=== PATIENT | female | born 2005 | race Caucasian/White ===

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

== ENCOUNTER 2024-02-06 08:01 | Outpatient (CLI) | payer BC, SELFPAY ==
[2024-02-06 10:05] LABS: Thyroid Stimulating Hormone 2.23 uIU/mL (0.465-4.68)
[2024-02-07 05:09] LABS: FSH 7.9 mIU/mL (.); LH 24.6 mIU/mL (.)
[2024-02-09 18:10] LABS: Free Testosterone (Direct) 2.7 pg/mL (Not Estab.); Testosterone, Total, LC/MS 53.5 ng/dL (10.0-55.0)
== END 2024-02-06 23:59 ==
LOC: LAB 08:02
PROVIDERS: PCP Internal Medicine; Visit Provider Obstetrics & Gynecology
DX: E28.2 Polycystic ovarian syndrome (principal)
CPT/HCPCS: 36415; 82626; 82670; 83001; 83002; 83498; 84443

== ENCOUNTER 2025-05-11 15:10 | Emergency (ER) | payer MEDICAID, SELFPAY ==
[2025-05-11 15:51] VITALS: BP 107/72; PULSE 83; RESP 17; TEMP 36.9; O2SAT 99; BMI 22.8
--- OUTSIDE RECORDS SUMMARY | 2025-05-11 15:57 | XMS_ITS | Data Portability ---
Author Organization ID - [facility] - [place] & [place] [facility] Address [address] [place] [address] Care Team Providers Care Territory Sales Representative Name Role Phone VAN VALADEZ Primary Care Provider VAN VALADEZ Referring Provider Assessment Encounter Date Assessment Date Assessment LastModified by Organization Details LastModified Time 09/05/2023 09/05/2023 Ms. Anand is an 17 yo lady with PMH of Hpylori s/p partial treatment(didnt complete d/t side effects), suspected IBS, anxiety who presents for evaluation of dysphagia, abdominal pain and significant constipation. 1. Dysphagia to solids 2. Unintentional weight loss , inability to eat 3. Mid- abdominal pain 4. change in bowel habits - Dysphagia to solids, with frequent regurgitation of food - no PH or FH of allergic conditions, no one with known EoE - Has never had an EGD for further evaluation Ddx: EoE vs stricture vs ring vs motility issue vs globus vs other - also has severe constipation , suddenly started 2 yrs ago, very difficult to have a bowel movement. Usually BSS 1. - has tried miralax, docusate and enemas but dont help much - never tried presciption medications for constipation - no known FH of GI cancers. Ddx: given she is having abdominal pain and change in bowel habits with weight loss, warrants endoscopic evaluation to rule out large polyps/ early tumors etc. Other differentials include slow transit constipation, IBS, outflow obstruction etc. PLAN: - Linzess 145 mcg daily start today - Dysphagia precautions - EGD for further evaluation of dysphagia and abdominal pain, ? H pylori which was partially treated - Colonoscopy for further evaluation of abdominal pain, weight loss, change in bowel habits. F/up in 6 weeks after above testing. Not available 09/05/2023 10:30:14 10/26/2023 10/26/2023 Ms. Anand is an 17 yo lady with PMH of Hpylori s/p partial treatment(didnt complete d/t side effects), suspected IBS, anxiety who presents for follow up after recent EGD with diagnosis of Eoe (50 Eos / hpf) and H pylori gastritis. 1. EOE- new diagnosis - dysphagia with choking episodes 3-4 times / month - EGD 09/2023 with no stricturing dosease but she did have 50 eos/ hpf and linear furrowing visible - currently not on any medication for this, hasnt started PPI therapy yet. PLAN: - lactose elimination (Starting with 1 food elimination diet per patient preference, she already avoids eggs) - start pantoprazole 40 mg BID, counselled on how to take it - discussed natural history, disease pathophys, management strategies for Eoe in detail with patient today - if no improvement with PPI and lactose elimination, will start fluticasone next visit 2. H.pylori Gastritis: - pylera was not covered by insurance so she got triple therapy with rifabutin instead. We discussed side effects how to take it etc. PLAN: - triple therapy for H pylori x 1 days - will check H pylori stool Ag after completion of treatment for eradication confirmation. 3. Constipation: - also has severe constipation , suddenly started 2 yrs ago, very difficult to have a bowel movement. Usually BSS 1. - doesnt have a BM for 4-5 days at a time. - has tried miralax, docusate and enemas but dont help much - never tried prescription medications for constipation - no known FH of GI cancers. - colonoscopy 09/2023 was normal,with normal TI. PLAN: - Start Linzess 145 mcg daily f/up in 6-8 weeks Not available 10/29/2023 14:00:44 Plan of Treatment Reminders Order Date Submit Date Provider Last Modified By Organization Details Last Modified Time Details Appointments None recorded. Lab CMP, serum or plasma 2022 023 epetting [facility], [address], [address], [place], [address], 4 15:21:39 CBC w/ auto diff 2022 023 epetting [facility], [address], [address], [place], [address], 4 15:21:39 Referral None recorded. Procedures upper endoscopy procedure (EGD) (PROC) 2022 023 epetting Not available 4 18:33:19 colonoscopy procedure (PROC) 2022 023 epetting Not available 4 18:33:19 Surgeries None recorded. Imaging CT, abdomen + pelvis, w/o contrast 2022 023 [email or web address] 7 [facility] (Centralized Scheduling), [address], [place], [address], 4 10:17:55 Medication Orders Golytely 236 gram-22.74 gram-6.74 gram-5.86 gram oral solution 2022 023 [facility], [address], [address], 3 09:40:24 Linzess 145 mcg capsule 2022 023 [email or web address] [facility], [address] [place] [address], [address], 3 10:21:19 omeprazole 20 mg capsule,del ayed release 2021 022 [facility], [address] [place] [address], [address], 2 14:21:14 Patient TargetsNo targets recorded. Patient InstructionsNo instructions recorded. Reason for Referral None Reported. Results Created Date Observation Date Name Description Value Unit Range Abnormal Flag Note LastModifiedBy Organization Detail LastModifiedTime Result Notes None recorded. Problems Name Problem SNOMED Code Status Onset Date Resolution Date Notes Provider Name and Address Organization Details Recorded Time Helicobacter pylori gastrointesti nal tract infection 044397197 Active 2022 Artur Taylor PA-C [address] , [place], [address] , [facility] & [place] 3 10:18:48 Eosinophilic esophagitis 170906164 Active 2022 Artur Taylor PA-C [address], [place], [address] , [facility] & [place] 3 10:25:17 Problem Notes None recorded. Medical Equipment None Reported. Allergies No known drug allergies Medications Name Sig Start Date Stop Date Status Note LastModified by Organization Details LastModified Time amoxicillin 500 mg capsule TAKE 2 CAPSULES BY MOUTH TWICE DAILY 09/05 completed Not Available Not Available Not Available paroxetine 10 mg tablet TAKE 1 TABLET BY MOUTH ONCE DAILY active Not Available Not Available No t Available ibuprofen 800 mg tablet TAKE 1 TABLET BY MOUTH EVERY 6 HOURS NEEDED FOR PAIN active Not Available Not Available No t Available clarithromy inessa 500 mg tablet TAKE 1 TABLET BY MOUTH TWICE DAILY active Not Available Not Available No t Available oxycodone-a cetaminophe n 5 mg-325 mg tablet TAKE 1 TABLET BY MOUTH EVERY 6 HOURS NEEDED FOR PAIN 09/05 completed Not Available Not Available Not Available lorazepam 0.5 mg tablet TAKE 1 TABLET BY MOUTH THREE TIMES DAILY NEEDED FOR ANXIETY active Not Available Not Available No t Available pantoprazol e 40 mg tablet,bella yed release TAKE 1 TABLET BY MOUTH TWICE DAILY 30 MINUTES BEFORE MORNING AND EVENING MEAL active Not Available Not Available No t Available oseltamivir 75 mg capsule TAKE 1 CAPSULE BY MOUTH TWICE DAILY active Not Available Not Available No t Available lansoprazol e 30 mg capsule,del ayed release TAKE 1 CAPSULE BY MOUTH TWICE DAILY active Not Available Not Available No t Available buspirone 7.5 mg tablet TAKE 1 TABLET BY MOUTH TWICE DAILY active Not Available Not Available No t Available omeprazole 20 mg capsule,del ayed release Take 1 capsule every day by oral route as directed for 30 days. active Not Available Not Available No t Available diclofenac sodium 75 mg tablet,bella yed release TAKE 1 TABLET BY MOUTH TWICE DAILY, DO NOT CRUSH, CHEW, OR SPLIT active Not Available Not Available No t Available bromphenira mine-pseudo ephedrine-D M 2 mg-30 mg-10 mg/5 mL oral syrup active Not Available Not Available Not Available sertraline 50 mg tablet TAKE 1 TABLET BY MOUTH ONCE DAILY active Not Available Not Available No t Available naproxen 500 mg tablet TAKE 1 TABLET BY MOUTH TWICE DAILY active Not Available Not Available No t Available GaviLyte-G 236 gram-22.74 gram-6.74 gram-5.86 gram oral solution TAKE DIRECTED active Not Available Not Available No t Available Linzess 145 mcg capsule Take by oral route for 90 days. active Not Available Not Available No t Available Talicia 10 mg-250 mg-12.5 mg capsule,imm ediate - delay release Take by oral route for 14 days. 2022 active Not Available Not Available Not Avai lable Zafemy 150 mcg-35 mcg/24 hr transdermal patch APPLY 1 PATCH TOPICALLY ONCE A WEEK FOR 3 WEEKS OF A 4 WEEK CYCLE active Not Available Not Available No t Available Vitals Date Recorded Body weight Body mass index (BMI) Body mass index (BMI) [Percentile] Per age and sex Body height Oxygen saturation Oxygen saturation in Arterial blood by Pulse oximetry Heart rate Heart rate Body temperature Systolic blood pressure Diastolic blood pressure Provider Name and Address Organization Details Last Updated DateTime 3 80978.9 9 g 24.2 kg/m2 76 % 157.48 cm 97 % 97 % 63 /min 60 /min 97.3 [degF] 126 mm[Hg] 91 mm[Hg] Felicita Mcintosh [facility] & [place] 3 08:48:53 Date Recorded Heart rate Systolic blood pressure Diastolic blood pressure Provider Name and Address Organization Details Last Updated DateTime 10/25/2022 79 /min 127 mm[Hg] 77 mm[Hg] Erika Nunez [facility] & [place] 10/25/2022 14:00:47 Date Recorded Body height Body mass index (BMI) Body mass index (BMI) [Percentile] Per age and sex Body weight Body temperature Oxygen saturation Oxygen saturation in Arterial blood by Pulse oximetry Heart rate Heart rate Systolic blood pressure Diastolic blood pressure Provider Name and Address Organization Details Last Updated DateTime 3 157.48 cm 25.1 kg/m2 81 % 54496.9 5 g 97.9 [degF] 97 % 97 % 88 /min 79 /min 116 mm[Hg] 84 mm[Hg] Jose D Wall [facility] & [place] 09:39:20 Social History Question Answer Notes LastModified by Organizat ion Details LastModified Time Tobacco Smoking Status Never Smoker Felicita Mcintosh null, [facility] & [place] 09/05/2023 08:48:29 What Is Your Level Of Caffeine Consumption? Occasional Information not available 10/26/2023 Sex: Unknown Functional Status Question Answer Note LastModified by Organizat ion Details LastModified Time Do you use any illicit or recreational drugs? No [email or web address] Information not available 09/05/2023 Do you or have you ever used any other forms of tobacco or nicotine? No Information not available 10/26/2023 What is your level of alcohol consumption? None [email or web address] Information not available 09/05/2023 Mental Status None recorded. Family History Nothing Reported. Medical History No medical history recorded. Gynecological HistoryNo gynecological history recorded. Obstetrics History GPAL:G 0 P 0 0 0 0 Past Encounters Encounter ID Performer Location Encounter Start Date Encounter Closed Date Diagnosis/Indication Diagnosis SNOMED-CT Code Diagnosis ICD10 Code Diagnosis Note [id number] Tamiko Foy NP [facility] [address] [address] 10/25/2022 13:54:36 10/25/2022 14:21:43 Epigastric pain 63102029 R10.13 - hx H pylori- omeprazole once daily- H pylori stool test- EGD scheduled- referred by [facility] Constipation 72574034 K5 9.00 - take MiraLax once daily as directed [id number] Varghese Morales MD [facility] [address] [address] 09/05/2023 08:40:44 09/05/2023 11:34:21 Dysphagia 12772857 R13.10 Abdominal pain 14375648 R10.9 Constipation 13910244 K5 9.00 [id number] Varghese Morales MD [facility] [address] [facility] [address] [place] [address] 10/26/2023 09:28:23 10/26/2023 10:37:00 Eosinophilic esophagitis 496732198 K20.0 Helicobact er pylori gastrointestinal tract infection 048307282 B96.81 Health Concerns Section Related Observation LastModified by Organization Detai ls LastModified Time None Recorded Concern Status LastModified by Organization Details LastModified Time None Recorded Advance Directives Directive None Recorded Payers Insurance Date Sequence Insurance Name Policy Number Policy Huff Covered Member ID Huff Member ID Guarantor Name 01/22/2024 1 [place] [id number] Tracey Anand [id number] Tracey Anand Notes Date Note Type Note Provider Name and Address Organization Details Recorded Time 10/25/2022 text/html Patient is a 16-year-old female here today with father. Reports she was diagnosed with H pylori and did not finish treatment. Reports history of chronic constipation was told to take MiraLax daily and has not followed that treatment plan either. Denies nausea, vomiting or hematemesis. Denies dysphagia or reports intermittent nausea and upper abdominal pain. Denies diarrhea or hematochezia. Tamiko Foy, CHE [address] [facility], [place], [address], [place] - [place] - [place] & [place] 10/25/2022 14:21:43 09/05/2023 text/html Ms. Anand is an 17 yo lady with PMH of Hpylori s/p partial treatment(didnt complete d/t side effects), suspected IBS, anxiety who presents for evaluation of dysphagia, abdominal pain and significant constipation. She reports that she has been having dysphagia to solids daily, at least one meal / day. its been going on for at least the last year and has become very bothersome for her. Common foods that cause her to have the choking sensation include chicken, bread and other dry foods. Even rice. She is scared to eat because she feels she will choke, She frequently has vomiting/ regurgitation of food. She has never gone in to the ER for a food impaction . Usually she is able to get it to go down by drinking a lot of fluids or inducing vomiting by putting her finger down her throat. This is very hard for her socially and makes her avoid going out. She also reports significant belly pain and constipation over the last 2 years. She has very hard stools, BSS 1. Has never had blood in the stool. She has a very small bowel movement once every 2 days but even then feels like she barely gets anything out (incomplete emptying) She also has significant fecal urgency multiple times a day, but when she goes nothing actually comes out. Associated with constant abdominal discomfort and bloating. It does get better when she finally poops well, but that isn't often. She has tried miralax, docusate and enemas, which didn't seem to help much. Never tried prescription medications for constipation. She does report 10 lb weight loss, poor appetite and fatigue over the last year. She has never had an EGD or a colonoscopy. She denies hematemesis, melena, hematochezia. She does not take NSAIDs. No known food or other allergies No FH of IBD, GI cancers or allergic conditions that she knows of , but she was adopted so is not totally sure. SH: She is a senior in high school graduating in october. Varghese Morales MD [facility], [place], [address], [facility] - [place] & [place] 09/05/2023 10:31:04 10/26/2023 text/html Ms. Anand is an 17 yo lady with PMH of Hpylori s/p partial treatment (didnt complete d/t side effects), suspected IBS, anxiety who presents for follow up after recent EGD with diagnosis of Eoe (50 Eos / hpf) and H pylori gastritis. She was sent triple therapy for Hpylori and PPI BID therapy , but reports that she is on no medications at this point because she was confused about what to take. She is still having frequent dysphagia, with choking episodes at least 3-4 times per week. She has not started PPI BID yet. We went over her mmedications in detail together today, discussed EoE, what it is, hwo we treat it, what the treatment goals are and what complications we want to avoid. She has never had food allergy testing but is open to it. She has noticed more trouble with milk, does not really eat eggs and thinks a full 6 food elimination diet might be difficult for her. she never started the linzess either ; still constipated having a BM once every 3 -4 days. She is willing to start this now. Varghese Morales MD [address], [place], [address], [facility] - [facility] - [place] & [place] 10/29/2023 14:01:21 OBGyn Episode No OBEpisode recorded.
--- OUTSIDE RECORDS SUMMARY | 2025-05-11 15:57 | XMS_ITS | Clinical Summary ---
Author Organization Healthcare Address [address] [place] [address] Care Team Providers Care Surgical Physician Assistant Name Role Phone Pcp, No Primary Care Provider Unavailabl e Allergies No known active allergies Medications oxyCODONE (Roxicodone) 5 MG immediate release tablet Take 1 tablet (5 mg total) by mouth every 6 (six) hours if needed for severe pain. 20 tablet Active Additional Information Patient not taking.Reported on 09/08/2021 Active Problems Problem Noted Date Diagnosed Date Acute lateral meniscus tear of right knee 2020 Social History Tobacco Use Types Packs/Day Years Used Date Smoking Tobacco: Never Assessed Comments No Sex and Gender Information Value Date Recorded Sex Assigned at Not on file Legal Sex Female 9:12 AM EDT Gender Identity Not on file Sexual Orientation Not on file Last Filed Vital Signs Vital Sign Reading Time Taken Comments Blood Pressure 114/69 09/08/2021 11:45 AM EDT Pulse 51 09/08/2021 11:45 AM EDT Temperature 36.2 C (97.2 F) 09/08/2021 11:15 AM EDT Respiratory Rate 19 09/08/2021 11:45 AM EDT Oxygen Saturation 100% 09/08/2021 11:45 AM EDT Inhaled Oxygen Concentration - - Weight 58.3 kg (128 lb 8.5 oz) 09/08/2021 8:00 A M EDT Height 157.5 cm (5' 2 ) 09/08/2021 8:00 AM EDT Body Mass Index 23.51 09/08/2021 8:00 AM EDT Plan of Treatment Health Maintenance Due Date Last Done Comments [facility]-Depression Screening 2004 [facility]-/Child/Adol SDOH Screenings 2004 [facility]-Varicella Vaccines (1 of 2 - 13+ 2-dose series) 2017 HPV Vaccines (1 - 3-dose series) 2019 [facility]- SDOH Screenings 2022 [facility]-Adult SDOH Screenings 2022 [facility]-DTaP,Tdap,and Td Vaccines (1 - Tdap) 2023 [facility]-Hepatitis B Vaccines (1 of 3 - 19+ 3-dose series) 2023 [facility]LA-[id number]-88 Vaccine (3 - 2023- season) 2024 07/13/2021, 06/15/2021 [facility]-Influenza Vaccine (Season Ended) 2025 [facility]-Zoster Vaccines (1 of 2) 2054 [facility]-HIB Vaccines Aged Out No longer e ligible based on patient's age to complete this topic [facility]-Hepatitis A Vaccines Aged Out No longer eligible based on patient's age to complete this topic [facility]-IPV Vaccines Aged Out No longer e ligible based on patient's age to complete this topic [facility]-Pneumococcal Vaccine: Pediatrics (0 to 5 Years) and At-Risk Patients (6 to 49 Years) Aged Out No longer eligible b ased on patient's age to complete this topic [facility]-Rotavirus Vaccines Aged Out No lo nger eligible based on patient's age to complete this topic Medical Devices Implanted Type Area Optical Model Maker And Tester Device Identifier Shelf Expiration Date Model / Serial / Lot Hip Stem Fast Fix 360 - [id number] - [id number] Implanted:Qty: 2 on 09/08/2021 by Ramana Carpenter MD at [facility] [place] Right: Knee [facility] ([id number])-[id number] 07/09/2024 [id number] / [id number] / [id number] Care Teams Surgical Physician Assistant Relationship Specialty Start Date End Date Pcp, Viry [address] [place] [address] PCP - General 09/02/21
[2025-05-11 16:05] LABS: Microscopic, Urine URINE MICROSCOPIC (MICROSCOPIC)
[2025-05-11 16:23] LABS: Appearance,Urine SL CLOUDY (Clear); Bilirubin,Urine Negative (Negative); Blood, Urine 3+ (Negative); Color,Urine YELLOW (Yellow); Glucose,Urine (UA) Negative (Negative); Ketones,Urine TRACE (Negative); Leukocyte Esterase,Urine Negative (Negative); Nitrate,Urine Negative (Negative); Protein,Urine 3+ (Negative); Specific Gravity, Urine >= 1.030 (1.005-1.030); Urobilinogen,Urine 0.2 EU/dl (0.2)
--- NOTE | 2025-05-11 16:28 | US_ITS ---
PROCEDURE INFORMATION: Exam: US Duplex Artery or Vein of the Abdominal and/or Reproductive Organs, Limited Ovaries Exam date and time: 05/11/2025 4:59 PM Clinical indication: Pelvic pain; Additional info: Pelvic pain, l>r, presyncope, concern ov torsion TECHNIQUE: Imaging protocol: Real-time duplex ultrasound scan of the arterial or venous flow with olvera scale, color Doppler flow and spectral waveform analysis with image documentation. Limited duplex exam focused on the ovaries. Duplex exam was performed to evaluate for torsion and other vascular conditions. COMPARISON: No relevant prior studies available. FINDINGS: Right ovary/adnexa: Normal arterial Doppler waveforms in the ovary. No ovarian torsion. Peak systolic velocity in the right ovary 8 cm/sec Left ovary/adnexa: Normal arterial Doppler waveforms in the ovary. No ovarian torsion. . Peak systolic velocity left ovary 16 cm/sec IMPRESSION: Normal duplex of the ovaries. No evidence of ovarian torsion. PROCEDURE INFORMATION: Exam: US Pelvis, Transvaginal, Non-Obstetric Exam date and time: 05/11/2025 4:59 PM Age: 19 years old Clinical indication: Pelvic pain; Additional info: Pelvic pain, l>r, presyncope, concern ov torsion TECHNIQUE: Imaging protocol: Real-time transvaginal pelvic (non-obstetric) ultrasound with image documentation. Transvaginal imaging was used for better evaluation of the endometrium, adnexa, and/or cervix. COMPARISON: No relevant prior studies available. FINDINGS: Uterus: Endometrium 6.7 mm. Uterus 7.1 x 3 x 4.6 cm total volume 52 cc. Cyst in the cervix consistent with nabothian cysts Right ovary/adnexa: Right ovary 3.1 x 2.1 x 1.5 cm total volume 5.1 cc. Peak systolic velocity right ovary 8 cm/sec Left ovary/adnexa: Left ovary 3.9 x 2.5 x 2.7 cm total volume 13.6 cc. Peak systolic velocity left ovary 16 cm/sec Urinary bladder: Urinary bladder is limited. Intraperitoneal space: Large amount of fluid in the posterior cul-de-sac 4.9 x 2.6 x 2.6 cm. IMPRESSION: Large amount of fluid in the posterior cul-de-sac 4.9 x 2.6 x 2.6 cm.
--- NOTE | 2025-05-11 16:29 | PC.NURSE ---
paged ultrasound at this time
[2025-05-11 16:35] LABS: Urine Pregnancy, HCG Qual. Negative (Negative)
[2025-05-11 16:35] LABS: Basophils % 0.3 % (0.1-2.0); Eosinophils % 0.3 % (0.1-12.0); Hematocrit 38.6 % (37.0-47.0); Hemoglobin 13.1 g/dL (12.2-16.2); Immature Granulocytes # 0.03 10^3uL; Immature Granulocytes % 0.3 %; Lymphocytes % 9.1 % (10-50); Mean Corpuscular HGB Conc 33.9 g/dL (31.8-35.4); Mean Corpuscular Volume 91.5 fl (81-99); Mean Platelet Volume 10.3 fl (7.4-10.4); Monocytes # 0.3 K/mm3 (0.1-1.0); Monocytes % 2.2 % (1.7-9.3); Neutrophils % 87.8 % (37.0-80.0); Nucleated Red Blood Cells # 0 10^3/uL; Nucleated Red Blood Cells % 0 %; Platelet Count 270 K/mm3 (142-424); Red Blood Count 4.22 M/mm3 (4.20-5.40); Red Cell Distribution Width 11.9 % (11.5-17.5); Red Cell Distribution Width-SD 39.4 fL; White Blood Count 11.3 K/mm3 (4.5-13.0)
[2025-05-11] MEDS: KETOROLAC 30MG/ML VIAL 15 MG IV (16:40)
[2025-05-11] MEDS: ACETAMINOPHEN 500MG TAB 1000 MG PO (16:40)
[2025-05-11 16:41] LABS: Albumin Level 4.6 g/dl (3.5-5.0); Chloride 102 mmol/L (98-107); Potassium 4.2 mmoL/L (3.5-5.1); Sodium 138 mmol/L (136-145)
[2025-05-11] MEDS: ONDANSETRON 4MG/2ML VIAL 4 MG IV (16:41)
[2025-05-11] MEDS: LACTATED RINGERS 1000ML 1,000 ML 999 ML IV (16:41)
[2025-05-11 16:43] LABS: Blood Urea Nitrogen 12 mg/dl (7-17); Creatinine Clearance Estimated 115 mL/min (50-200); Estimated Glomerular Filt Rate 107 ml/min (>60); GFR (African American) 129 ML/MIN (>60)
[2025-05-11 16:44] LABS: Alanine Aminotransferase 17 U/L (12-78); Albumin/Globulin Ratio 1.4 (1.1-1.8); Alkaline Phosphatase 55 U/L (38-126); Anion Gap 14.2 mEq/L (5-15); Aspartate Amino Transferase 30 U/L (14-36); Bilirubin,Total 0.3 mg/dl (0.2-1.3); Calcium 9.2 mg/dl (8.4-10.2); Carbon Dioxide 26 mmol/L (22.0-30.0); Globulin 3.3 g/dL (1.3-3.2); Glucose 104 mg/dl (74-100); Lipase 235 U/L (23-300); Total Protein,Serum 7.9 g/dl (6.3-8.2)
[2025-05-11 16:44] LABS: Bacteria,Urine 2+ /lpf; RBC,Urine TNTC #/hpf (0-3)
--- NOTE | 2025-05-11 17:07 | ED_ITS ---
Discharge Plan Disposition Patient Disposition: Home, Self-Care Condition: Good Prescriptions Prescriptions: New ketorolac 10 mg tablet 10 mg PO Q8H PRN (Reason: pain) Qty: 12 0RF ondansetron 4 mg tablet,disintegrating 4 mg PO Q8H PRN (Reason: nausea and vomiting) 4 Days Qty: 12 0RF Referrals Follow up/Referrals: Ernestine Summers DO [Staff Physician, [employer]] - See instructions Kymberly Martin DO [Staff Physician, [employer]] - See instructions Marty Herrera DO [Primary Care Provider, Internal Medicine] - See instructions Activity Restrictions/Add. Instructions Additional Instructions/Restrictions: You were evaluated in the emergency department today. As we discussed, you have fluid in your pelvis, which could indicate that you likely ruptured an ovarian cyst. Please coal picker your prescriptions at the pharmacy and take them as needed. Please also take Tylenol every 4-6 hours as needed for pain. Follow-up closely with gynecology for reassessment. Return to the emergency department right away for new or worsening symptoms, such as worsening lightheadedness, significant worsening of pain, or other concerns. Clinical Impressions Clinical Impression: Free fluid in pelvis, Pelvic pain, Dysmenorrhea Stand Alone Forms Stand Alone Forms: Work/School Release Instructions Patient Instructions: DI for Dysmenorrhea, DI for Acute Abdominal Pain, DI for Pelvic Pain Print Language Print Language: Mosotho Discharge ED Provider: Vikki Sun General Adult HPI General Chief complaint: Abdominal Pain Stated complaint: abdominal pain, nausea, vomitting, shakes Time Seen by Provider: 05/11/25 16:16 Mode of Arrival: Ambulatory Source of Information: Patient Description of Symptoms (Recalled from ER Triage Doc. by RN): pt to the ED with vomiting, pelvic cramping and abd. pain. pt reports she has PCOS and started her menstural cycle today and has since been feeling bad. History of Present Illness HPI narrative: This patient is a 19-year-old female with a history of PCOS and irregular periods presenting to the emergency department for evaluation with concern for pelvic pain, left greater than right, and heavy vaginal bleeding. She notes that it started today. She states that her pelvic pain is so bad that she has had multiple episodes of nausea and vomiting and felt presyncopal. She notes that she is also been bleeding more than normal and is concerned that she may have an ovarian cyst. No fevers, changes in bowel movements, or other concerns noted Related Data Previous Rx's ?Medication ?Instructions ?Recorded ketorolac 10 mg tablet 10 mg PO Q8H PRN pain #12 ta bs 05/11/25 ondansetron 4 mg disintegrating 4 mg PO Q8H PRN nausea and 05/11/25 tablet vomiting 4 days #12 tabs Allergies Allergy/AdvReac Type Severity Reaction Status Date / Time No Known Allergies Allergy Verified 02/05/24 15:50 PFSH PFS Disclaimer: The information contained in this section may have been updated after the patient was seen, as this information can be updated by other users. Medical History H. 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 H/O right knee surgery Family History Other No significant family history Social History Smoking Status: Never smoker second hand exposure: No alcohol intake: never counseling given: No substance use type: denies use counseling given: No current occupational status: student Travel in the last 8 weeks?: None adopted: Yes caregiver/support person: No foster care: No household members: family housing: house lives independently: No marital status: single number of children: 0 number of grandchildren: 0 education level: other details: she is currently a senior in school Hx Recent Travel: No sexually active: Yes caffeine: No physical activity: none working smoke detector in home: Yes fire extinguisher in home: Yes carbon monox detector in home: Yes firearms in home: No do you feel safe at home: Yes victim of physical abuse: No victim of emotional abuse: Yes victim of sexual abuse: No would you like helpful sources: No Have you lived/traveled outside [place] in past 30 days?: No Contact w/someone who lives/traveled outside [place] past 30 days?: No Exposure to someone with infectious disease in past 14 days?: No Do you have a fever (greater than 100.4 F or 38 C)?: No Have you tested positive for COVID-19?: No Exposed to someone with COVID-19 in past 14 days?: No Do you have a sore throat?: No Do you have a cough?: No Do you have any weakness?: No Do you have any diarrhea?: No Are you experiencing any unusual bleeding?: No Do you have any muscle aches/pain?: No Do you have any abdominal pain?: No Are you experiencing loss of taste or smell?: No Other Medical History Have you received the Pneumonia Vaccine: No ROS Obtained: Yes All systems reviewed & no additional complaints except as documented Physical Exam General General appearance: alert and in no apparent distress Head Head exam: atraumatic and normocephalic Eye Eye exam: Present normal appearance, PERRL and EOMI ENT ENT exam: Present normal exam, normal oropharynx, mucous membranes moist and normal external ear exam Neck Neck exam: Present normal inspection, full ROM and trachea midline; Absent tenderness Chest Chest inspection: Present normal inspection and symmetric chest wall rise; Absent tenderness Respiratory Respiratory exam: Present normal lung sounds bilaterally; Absent respiratory distress, wheezes, stridor or accessory muscle use Cardiovascular Cardiovascular exam: Present regular rate and normal rhythm Abdominal Exam Abdominal exam: Present soft and tenderness (Pelvic, left lower quadrant); Absent distention, guarding, rebound or rigidity Extremities Exam Extremities exam: Present normal inspection, full ROM and normal capillary refill; Absent tenderness or edema Back Exam Back exam: Present normal inspection and full ROM; Absent tenderness Neurological Exam Neurological exam: Present alert, oriented X3, CN II-XII intact and normal gait; Absent motor sensory deficit Psychiatric Psychiatric exam: Present normal affect and normal mood Skin Skin exam: Present warm and dry Medical Decision Making Medical Records Medical records reviewed: Yes I reviewed the patient's medical records. Screening: Per USPSTF and CDC recommendations, given the prevalence of disease in our region, it is our hospital?s policy to screen for HIV and viral Hepatitis for all patients aged 18 and over and those with ongoing risk factors. Mando Inquiry Pt receiving controlled substance: No Vital Signs: 05/11/25 15:51 05/11/25 18:10 05/11/25 18:36 Temperature 98.4 F 98.2 F Temperature Source Oral Pulse Rate 62 63 Pulse Rate [Left Radial] 83 Respiratory Rate 17 16 20 Blood Pressure 86/69 L 106/57 L Blood Pressure [Right Arm] 107/72 L Blood Pressure Mean [Right Arm] 83 Blood Pressure Source Automatic Cuff Blood Pressure Source [Right Arm] Automatic Cuff Blood Pressure Position Sitting Blood Pressure Position [Right Arm] Sitting 02 Sat by Pulse Oximetry 99 98 Oxygen Delivery Method Room Air Room Air Room Air Lab Data Lab results reviewed: Yes I reviewed the patient's lab results. Lab Results 05/11/25 15:59: Urine Color Yellow, Urine Appearance Sl cloudy, Urine pH 6.0, Ur Specific [place] >= 1.030, Urine Protein 3+ A, Urine Glucose (UA) Negative, Urine Ketones Trace, Urine Blood 3+ A, Urine Nitrate Negative, Urine Bilirubin Negative, Urine Urobilinogen 0.2, Ur Leukocyte Esterase Negative, Urine RBC Tntc, Urine WBC 10-20, Ur Squamous Epith Cells 10-20, Urine Bacteria 2+, Urine HCG, Qual Negative 05/11/25 16:20: WBC 11.3, RBC 4.22, Hgb 13.1, Hct 38.6, MCV 91.5, MCH 31.0, MCHC 33.9, RDW 11.9, Plt Count 270, MPV 10.3, Neut % (Auto) 87.8 H, Lymph % (Auto) 9.1 L, [place] % (Auto) 2.2, Eos % (Auto) 0.3, Baso % (Auto) 0.3, Neut # (Auto) 10.0 H, Lymph # (Auto) 1.0, [place] # (Auto) 0.3, Eos # (Auto) 0.0, Baso # (Auto) 0.0, Sodium 138, Potassium 4.2, Chloride 102, Carbon Dioxide 26, Anion Gap 14.2, BUN 12, Creatinine 0.70, Estimated Creat Clear 115, Estimated GFR 107, Est GFR ( Amer) 129, Glucose 104 H, Calcium 9.2, Total Bilirubin 0.3, AST 30, ALT 17, Alkaline Phosphatase 55, Total Protein 7.9, Albumin 4.6, Globulin 3.3 H, Albumin/Globulin Ratio 1.4, Lipase 235 05/11/25 16:20 05/11/25 16:20 Orders (Tests/Meds): ED MEDICATIONS Discontinued Medications Generic Name Dose Route Start Last Admin Trade Name Freq PRN Reason Stop Dose Admin Acetaminophen 1,000 mg 05/11/25 16:29 05/11/25 16:40 Acetaminophen 500mg Tab PO 05/11/25 16:30 1,000 mg ONCE ONE Administration Lactated Ringer's 1,000 mls @ 999 mls/hr 05/11/25 16:29 05/11/25 16:41 Lactated Ringer's 1000 Ml Bag IV 05/11/25 17:29 999 mls/hr .Q1H1M ONE Administration Ketorolac Tromethamine 15 mg 05/11/25 16:29 05/11/25 16:40 Ketorolac 30mg/Ml Vial IV 05/11/25 16:30 15 mg ONCE ONE Administration Ondansetron HCl 4 mg 05/11/25 16:29 05/11/25 16:41 Ondansetron 4mg/2ml Vial IV 05/11/25 16:30 4 mg ONCE ONE Administration ORDERS Category Date Time Status US transvaginal Stat Exams 05/11/25 16:28 Completed Complete Blood Count Auto Diff Stat Lab 05/11/25 16:20 Completed Comprehensive Metabolic Panel Stat Lab 05/11/25 16:20 Completed Lipase Stat Lab 05/11/25 16:20 Completed UA [Urinalysis and Microscopic] Stat Lab 05/11/25 15:59 Completed Urine , HCG Qual. Stat Lab 05/11/25 15:59 Completed Urine Culture Stat Micro 05/11/25 15:59 Received Medical Decision Narrative: In summary, this patient is a 19-year-old female presenting to the Emergency Department for evaluation of pain and heavy vaginal bleeding with starting her period today. Differential diagnoses considered include but are not limited to ovarian cyst, ovarian torsion, dysmenorrhea, anemia, uterine fibroid, ectopic . Ruling out the most morbid conditions drove assessment. It should be noted patient's history includes irregular periods and PCOS which may or may not be at goal therapy. This complicates all aspects of care by increasing patient's risk for morbidity. I reviewed patient's past medical records and noted prior gynecology evaluations for maintenance of health. On exam, the patient is lying in bed in no acute distress with left lower quadrant tenderness but otherwise benign abdominal exam. She is afebrile and nontoxic-appearing with reassuring vitals on cardiac telemetry workup included CBC, CMP, urinalysis, test, transvaginal ultrasound. She was given a bolus of IV fluids as well as IV Toradol, oral Tylenol, and IV Zofran for symptomatic improvement. I independently interpreted ultrasound prior to the radiologist read and noted free fluid in the pelvis, no ovarian cyst. She has flow to both ovaries. Please see their read for final interpretation. Labs were obtained that demonstrated negative test, reassuring CBC with no significant leukocytosis or anemia, reassuring chemistry. Urinalysis demonstrates hematuria in the setting of acute vaginal bleeding and is contaminated with squamous cells, but is negative for leukocyte esterase and nitrates. She denies any urinary symptoms. On reassessment, patient had great improvement after administration of Toradol and Tylenol. She is feeling a lot better with benign abdominal exam. Vitals are reassuring on cardiac telemetry, hemoglobin is reassuring. Given the free fluid in her pelvis as well as acute symptoms, I feel she likely has ruptured an ovarian cyst. Doubt acute surgical intra-abdominal pathology that requires admission. I had an interactive discussion with Dr Martin with OB and we both feel the patient is appropriate for discharge home with prescription for NSAIDs and close follow-up with PCP and OB. Strict return precautions were given as well as prescriptions for Toradol and Zofran. Critical Care Critical Care Time Critical Care Time: No
[2025-05-11 18:10] VITALS: BP 86/69; PULSE 62; RESP 16; O2SAT 98
--- NOTE | 2025-05-11 18:24 | PC.NURSE ---
consulting Dr. Galeas d/t free fluid in the pelvis
[2025-05-11 18:36] VITALS: BP 106/57; PULSE 63; RESP 20; TEMP 36.8; O2SAT 99
== END 2025-05-11 18:37 | disposition home or self-care (01) ==
PROVIDERS: Emergency Provider Emergency Medicine; PCP Internal Medicine
DX: R10.2 Pelvic and perineal pain (principal); R11.2 Nausea with vomiting, unspecified; R18.8 Other ascites; N94.6 Dysmenorrhea, unspecified
CPT/HCPCS: 76830; 80053; 81001; 81025; 83690; 85025; 87086; 96361; 96374; 96375; 99284; J1885; J2405; J7120